=== PATIENT | female | born 1945 | race Caucasian/White ===

== ENCOUNTER → 2020-07-22 | Outpatient (CLI) | payer MEDICARE, OTHER ==
[~2020-07-22] MED LIST: ANORO ELLIPTA1 EACH INH; OMNICEF 300 MG300 MG PO; OXYCONTIN10 MG PO; SINGULAIR10 MG PO; VOLTAREN GEL 1% TOP; ZITHROMAX250 MG PO
== END ==
LOC: KOH-I 09:53
DX: M25.511 Pain in right shoulder (principal)
CPT/HCPCS: 72070; 73030

== ENCOUNTER → 2020-09-13 | Outpatient (CLI) | payer MEDICARE, OTHER | LOC: EXRD 09:39 | DX: E55.9 Vitamin D deficiency, unspecified (principal); E78.5 Hyperlipidemia, unspecified; M81.0 Age-related osteoporosis without current pathological fracture; M85.88 Other specified disorders of bone density and structure, other site | CPT/HCPCS: 77080 ==

== ENCOUNTER 2020-10-03 16:14 | Emergency (ER) | payer MEDICARE, OTHER ==
[~2020-10-03 16:14] MED LIST changes: -OMNICEF 300 MG300 MG PO; -VOLTAREN GEL 1% TOP; -ZITHROMAX250 MG PO
[2020-10-04] MEDS ORDERED: ZITHROMAX250 MG PO (11:01)
[2020-10-04] MEDS ORDERED: OMNICEF 300 MG300 MG PO (11:01)
[2020-10-04] MEDS ORDERED: VOLTAREN GEL 1% TOP (11:01)
== END 2020-10-03 20:14 | disposition home or self-care (01) ==
LOC: ER1 16:14
DX: R07.81 Pleurodynia (principal); J44.9 Chronic obstructive pulmonary disease, unspecified; I48.91 Unspecified atrial fibrillation; F17.210 Nicotine dependence, cigarettes, uncomplicated
CPT/HCPCS: 99283

== ENCOUNTER 2020-10-04 07:29 | Emergency (ER) | payer MEDICARE, OTHER ==
[2020-10-04 09:37] LABS: HEMOGLOBIN 13.6 gm/dl (12.3-15.3); RED BLOOD COUNT 4.12 M/UL (4.00-5.10); WHITE BLOOD COUNT 8.3 K/UL (4.5-11.0)
[2020-10-04 09:58] LABS: BUN/CREATININE RATIO 15 (0-10)
[2020-10-04] MEDS ORDERED: ZITHROMAX250 MG PO (11:01)
[2020-10-04] MEDS ORDERED: VOLTAREN GEL 1% TOP (11:01)
[2020-10-04] MEDS ORDERED: OMNICEF 300 MG300 MG PO (11:01)
== END 2020-10-04 11:30 | disposition home or self-care (01) ==
LOC: ER1 07:29
PROVIDERS: Physician Assistant Medical
DX: S22.31XA Fracture of one rib, right side, initial encounter for closed fracture (principal); I48.91 Unspecified atrial fibrillation; J44.9 Chronic obstructive pulmonary disease, unspecified; F17.210 Nicotine dependence, cigarettes, uncomplicated; Z90.710 Acquired absence of both cervix and uterus; Z20.822 Contact with and (suspected) exposure to COVID-19; W22.8XXA Striking against or struck by other objects, initial encounter; Y93.39 Activity, other involving climbing, rappelling and jumping off; Y92.009 Unspecified place in unspecified non-institutional (private) residence as the place of occurrence of the external cause
CPT/HCPCS: 0240U; 36600; 71111; 80053; 82803; 84484; 85025; 93005; 99285

== ENCOUNTER → 2020-10-19 | Outpatient (CLI) | payer MEDICARE, OTHER ==
[~2020-10-19] MED LIST changes: +OMNICEF 300 MG300 MG PO; +VOLTAREN GEL 1% TOP; +ZITHROMAX250 MG PO
== END ==
LOC: RAD 11:25
DX: S22.31XA Fracture of one rib, right side, initial encounter for closed fracture (principal); X58.XXXA Exposure to other specified factors, initial encounter
CPT/HCPCS: 71045; 71111

== ENCOUNTER → 2020-12-22 | Outpatient (CLI) | payer MEDICARE, OTHER | LOC: KOH-I 10:00 | DX: C50.119 Malignant neoplasm of central portion of unspecified female breast (principal); C34.12 Malignant neoplasm of upper lobe, left bronchus or lung; R91.8 Other nonspecific abnormal finding of lung field; R59.0 Localized enlarged lymph nodes | CPT/HCPCS: 71250 ==

== ENCOUNTER → 2021-03-06 | Outpatient (CLI) | payer MEDICARE, OTHER | LOC: EXRD 08:35 | DX: Z00.00 Encounter for general adult medical examination without abnormal findings (principal); Z85.3 Personal history of malignant neoplasm of breast; R91.1 Solitary pulmonary nodule; J98.4 Other disorders of lung; J98.11 Atelectasis | CPT/HCPCS: 71046 ==

== ENCOUNTER → 2021-03-23 | Outpatient (CLI) | payer MEDICARE, OTHER | LOC: CT 12:13 | DX: C50.119 Malignant neoplasm of central portion of unspecified female breast (principal); C34.12 Malignant neoplasm of upper lobe, left bronchus or lung; R59.0 Localized enlarged lymph nodes | CPT/HCPCS: 71260; Q9967 ==

== ENCOUNTER 2021-05-24 16:16 | Inpatient (IN) | payer MEDICARE, OTHER ==
[~2021-05-24] VITALS: Ht 170.2 cm; Wt 61.9 kg
[~2021-05-24 16:16] MED LIST changes: -ANORO ELLIPTA1 EACH INH; -OXYCONTIN10 MG PO
[2021-05-24 17:34] LABS: HEMOGLOBIN 12.7 gm/dl (12.3-15.3); RED BLOOD COUNT 3.93 M/UL (4.00-5.10); WHITE BLOOD COUNT 3.1 K/UL (4.5-11.0)
[2021-05-24 18:00] LABS: BUN/CREATININE RATIO 19 (0-10)
[2021-05-25 02:53] LABS: RED BLOOD COUNT 3.66 M/UL (4.00-5.10); WHITE BLOOD COUNT 2.5 K/UL (4.5-11.0)
[2021-05-25 03:10] LABS: BUN/CREATININE RATIO 21 (0-10)
[2021-05-25] MEDS ORDERED: ANORO ELLIPTA1 EACH INH (08:23)
[2021-05-25] MEDS ORDERED: ROXICODONE15 MG PO (08:23)
[2021-05-25] MEDS ORDERED: VITAMIN C500 M4 PO (10:24)
[2021-05-25] MEDS ORDERED: MELATONIN10 M2 PO (10:24)
[2021-05-25] MEDS ORDERED: PROAIR DIGIHAL90 MCG INH (10:25)
--- NOTE | 2021-05-25 14:16 | NUR ---
NO CHANGE FROM PREVIOUS ASSESSMENT
[2021-05-26 02:55] LABS: HEMOGLOBIN 11.7 gm/dl (12.3-15.3); RED BLOOD COUNT 3.68 M/UL (4.00-5.10)
[2021-05-26 02:56] LABS: BUN/CREATININE RATIO 25 (0-10)
[2021-05-26 03:01] LABS: WHITE BLOOD COUNT 3.7 K/UL (4.5-11.0)
[2021-05-26] MEDS ORDERED: CEFUROXIME500 MG PO (09:46)
[2021-05-26] MEDS ORDERED: DECADRON6 MG PO (09:46)
== END 2021-05-26 13:11 | disposition home health service (06) | DRG 177 ==
LOC: ER1 16:16 → PROG CARE 18:57 → CDU 18:57 → PROG CARE 22:00
PROVIDERS: Emergency Medicine; ADMIT Internal Medicine
PROC: 8E0ZXY6 Isolation (ICD-10-PCS; principal; 2021-05-24)
PROC: 3E0333Z Introduction of Anti-inflammatory into Peripheral Vein, Percutaneous Approach (ICD-10-PCS; 2021-05-24)
PROC: XW033E5 Introduction of Remdesivir Anti-infective into Peripheral Vein, Percutaneous Approach, New Technology Group 5 (ICD-10-PCS; 2021-05-24)
DX: U07.1 COVID-19 (principal); J12.82 Pneumonia due to coronavirus disease 2019; J96.21 Acute and chronic respiratory failure with hypoxia; J44.0 Chronic obstructive pulmonary disease with (acute) lower respiratory infection; C34.90 Malignant neoplasm of unspecified part of unspecified bronchus or lung; C79.31 Secondary malignant neoplasm of brain; F41.9 Anxiety disorder, unspecified; I48.91 Unspecified atrial fibrillation; M81.0 Age-related osteoporosis without current pathological fracture; F17.210 Nicotine dependence, cigarettes, uncomplicated; R41.0 Disorientation, unspecified; Z79.01 Long term (current) use of anticoagulants; Z88.8 Allergy status to other drugs, medicaments and biological substances; Z82.49 Family history of ischemic heart disease and other diseases of the circulatory system
CPT/HCPCS: 0240U; 36415; 36600; 71045; 80048; 80053; 82550; 82553; 82803; 83605; 83735; 83874; 83880; 84484; 85025; 87040; 94640; 94664; 94760; 96374; 96375; 99285; J0696; J1100; J1650; J7030

== ENCOUNTER 2021-06-02 12:36 | Inpatient (IN) | payer MEDICARE, OTHER ==
[~2021-06-02] VITALS: Ht 170.2 cm; Wt 62.1 kg
[~2021-06-02 12:36] MED LIST changes: +ANORO ELLIPTA1 EACH INH; +CEFUROXIME500 MG PO; +DECADRON6 MG PO; +MELATONIN10 M2 PO; +PROAIR DIGIHAL90 MCG INH; +ROXICODONE15 MG PO; +VITAMIN C500 M4 PO
[2021-06-02 13:44] LABS: HEMOGLOBIN 14.2 gm/dl (12.3-15.3); RED BLOOD COUNT 4.44 M/UL (4.00-5.10); WHITE BLOOD COUNT 10.5 K/UL (4.5-11.0)
[2021-06-02 14:05] LABS: BUN/CREATININE RATIO 33 (0-10)
[2021-06-02 19:58] LABS: ACINETOBACTER BAUMANNII Not Detected (Negative); CANDIDA ALBICANS Not Detected (Negative); CANDIDA KRUSEI Not Detected (Negative); CANDIDA TROPICALIS Not Detected (Negative); ENTEROCOCCUS Not Detected (Negative); ESCHERICHIA COLI Not Detected (Negative); HAEMOPHILUS INFLUENZAE Not Detected (Negative); KLEBSIELLA OXYTOCA Not Detected (Negative); KLEBSIELLA PNEUMONIAE Not Detected (Negative); KPC-CARBAPENEM-RESISTANCE GENE Not Detected (Negative); PROTEUS Not Detected (Negative); PSEUDOMONAS AERUGINOSA Not Detected (Negative); SERRATIA MARCESANS Not Detected (Negative); STAPHYLOCOCCUS Not Detected (Negative); STAPHYLOCOCCUS AUREUS Not Detected (Negative); STREP AGALACTIAE (GROUP B) Not Detected (Negative); STREP PYOGENES (GROUP A) Not Detected (Negative); STREPTOCOCCUS Not Detected (Negative); mecA (METHICILLIN RESIST GENE Not Detected (Negative); vanA/B (VANCOMYCIN RESIST GENE Not Detected (Negative)
[2021-06-03 06:15] LABS: HEMOGLOBIN 13.3 gm/dl (12.3-15.3); RED BLOOD COUNT 4.24 M/UL (4.00-5.10)
[2021-06-03 06:16] LABS: WHITE BLOOD COUNT 5.5 K/UL (4.5-11.0)
[2021-06-03 06:32] LABS: BUN/CREATININE RATIO 29 (0-10)
[2021-06-04 07:11] LABS: HEMOGLOBIN 11.2 gm/dl (12.3-15.3); RED BLOOD COUNT 3.56 M/UL (4.00-5.10); WHITE BLOOD COUNT 7.5 K/UL (4.5-11.0)
[2021-06-04 07:37] LABS: BUN/CREATININE RATIO 26 (0-10)
[2021-06-05 04:33] LABS: HEMOGLOBIN 11.2 gm/dl (12.3-15.3); RED BLOOD COUNT 3.62 M/UL (4.00-5.10); WHITE BLOOD COUNT 7.9 K/UL (4.5-11.0)
[2021-06-05 04:39] LABS: BUN/CREATININE RATIO 27 (0-10)
[2021-06-05] MEDS ORDERED: BUDESONIDE0.5 MG/2 M NEB (14:21)
[2021-06-05] MEDS ORDERED: TAMIFLU 75 MG C75 MG PO (14:21)
[2021-06-05] MEDS ORDERED: IPRAT-ALBUT 0.5-3 ML NEB (14:21)
[2021-06-05] MEDS ORDERED: LEVOFLOXACIN750 MG PO (14:30)
[2021-06-05] MEDS ORDERED: DOXYCYCLINE HY100 MG PO (14:30)
[2021-06-05] MEDS ORDERED: FLORASTOR250 MG PO (14:30)
== END 2021-06-05 15:28 | disposition home health service (06) | DRG 193 ==
LOC: ER1 12:36 → CDU 14:57 → MED SURG 4 14:57
PROVIDERS: Emergency Medicine; ADMIT Internal Medicine
PROC: 3E0333Z Introduction of Anti-inflammatory into Peripheral Vein, Percutaneous Approach (ICD-10-PCS; principal; 2021-06-02)
DX: J10.08 Influenza due to other identified influenza virus with other specified pneumonia (principal); J96.21 Acute and chronic respiratory failure with hypoxia; G93.41 Metabolic encephalopathy; U07.1 COVID-19; E87.1 Hypo-osmolality and hyponatremia; J44.0 Chronic obstructive pulmonary disease with (acute) lower respiratory infection; I48.0 Paroxysmal atrial fibrillation; M81.0 Age-related osteoporosis without current pathological fracture; M54.9 Dorsalgia, unspecified; J15.9 Unspecified bacterial pneumonia; F17.210 Nicotine dependence, cigarettes, uncomplicated; D69.6 Thrombocytopenia, unspecified; G89.29 Other chronic pain; Z85.118 Personal history of other malignant neoplasm of bronchus and lung; Z98.890 Other specified postprocedural states; Z88.8 Allergy status to other drugs, medicaments and biological substances; Z88.5 Allergy status to narcotic agent; Z79.899 Other long term (current) drug therapy; Z71.6 Tobacco abuse counseling; Z99.81 Dependence on supplemental oxygen
CPT/HCPCS: 36415; 36600; 70450; 71045; 80053; 80202; 81001; 82550; 82553; 82728; 82803; 82962; 83605; 83735; 83874; 83880; 84484; 85025; 85379; 86140; 87040; 87150; 93005; 94640; 94664; 94760; 99285; J0696; J1100; J1650; J2185; J3370; J7030; J7070; Q9967; U0002

== ENCOUNTER → 2021-06-19 | Outpatient (CLI) | payer MEDICARE, OTHER ==
[~2021-06-19] MED LIST changes: +BUDESONIDE0.5 MG/2 M NEB; +DOXYCYCLINE HY100 MG PO; +FLORASTOR250 MG PO; +IPRAT-ALBUT 0.5-3 ML NEB; +LEVOFLOXACIN750 MG PO; +TAMIFLU 75 MG C75 MG PO
== END ==
LOC: EXRD 08:17
DX: Z00.00 Encounter for general adult medical examination without abnormal findings (principal); R91.8 Other nonspecific abnormal finding of lung field
CPT/HCPCS: 71046

== ENCOUNTER → 2021-06-27 | Day surgery (SDC) | payer MEDICARE, OTHER ==
[~2021-06-27] MED LIST changes: +BUDESONIDE0.5 MG/2 M INH; +IPRAT-ALBUT 0.5-3 ML INH; +OXYCODONE HCL15 MG PO; +PROAIR HFA8.5 GM INH; +PROBIOTIC250 MG PO
== END | disposition home or self-care (01) ==
LOC: OR 05:47
PROVIDERS: Surgery
PROC: 02HV33Z Insertion of Infusion Device into Superior Vena Cava, Percutaneous Approach (ICD-10-PCS; principal; 2021-06-27 08:30)
DX: C34.12 Malignant neoplasm of upper lobe, left bronchus or lung (principal); C77.1 Secondary and unspecified malignant neoplasm of intrathoracic lymph nodes; J44.9 Chronic obstructive pulmonary disease, unspecified; E78.5 Hyperlipidemia, unspecified; M19.90 Unspecified osteoarthritis, unspecified site; I48.91 Unspecified atrial fibrillation; I47.1 Supraventricular tachycardia; F17.210 Nicotine dependence, cigarettes, uncomplicated; Z20.822 Contact with and (suspected) exposure to COVID-19; Z88.5 Allergy status to narcotic agent; Z79.899 Other long term (current) drug therapy; Z85.3 Personal history of malignant neoplasm of breast; Z87.01 Personal history of pneumonia (recurrent)
CPT/HCPCS: 77001; C1769; C1788; J0690; J1642; J2704; J3010; J7030; J7040; J7120

== ENCOUNTER → 2021-09-11 | Outpatient (CLI) | payer MEDICARE, OTHER | LOC: EXRD 09-06 09:00 | DX: H53.123 Transient visual loss, bilateral (principal); I65.23 Occlusion and stenosis of bilateral carotid arteries | CPT/HCPCS: 93880 ==

== ENCOUNTER → 2021-11-01 | Outpatient (CLI) | payer MEDICARE, OTHER | LOC: HEART 5 09:10 | DX: R00.0 Tachycardia, unspecified (principal); R00.2 Palpitations; I70.0 Atherosclerosis of aorta; I34.8 Other nonrheumatic mitral valve disorders; I51.7 Cardiomegaly; I51.89 Other ill-defined heart diseases | CPT/HCPCS: 93306 ==

== ENCOUNTER → 2021-11-14 | Outpatient (CLI) | payer MEDICARE, OTHER | LOC: CT 08:10 | DX: C50.119 Malignant neoplasm of central portion of unspecified female breast (principal); C34.12 Malignant neoplasm of upper lobe, left bronchus or lung; R91.8 Other nonspecific abnormal finding of lung field; I71.4 Abdominal aortic aneurysm, without rupture | CPT/HCPCS: 71260; Q9967 ==

== ENCOUNTER → 2022-03-01 | Outpatient (CLI) | payer MEDICARE, OTHER | LOC: CT 10:45 | DX: C50.119 Malignant neoplasm of central portion of unspecified female breast (principal); C34.12 Malignant neoplasm of upper lobe, left bronchus or lung; R91.1 Solitary pulmonary nodule; J94.8 Other specified pleural conditions; I71.4 Abdominal aortic aneurysm, without rupture; I70.0 Atherosclerosis of aorta | CPT/HCPCS: 36415; 71260; 82565; 84520; Q9967 ==